=== PATIENT | female | born 1980 | race Caucasian/White ===

== ENCOUNTER → 2019-08-03 17:36 | Outpatient (CLI) | payer OTHER, SELFPAY ==
--- NOTE | 2019-08-03 18:15 | MRI_ITS ---
STUDY: MRI LUMBAR SPINE WITH AND WITHOUT CONTRAST REASON FOR EXAM: Female, 39 years old. Low back and bilateral leg pain. History of surgery at L5 S1 3 years ago. TECHNIQUE: Standardized fat and water weighted pulse sequences were obtained in the sagittal and axial planes. IV Dotarem 13 was administered for the contrast portion of the examination. COMPARISON: None FINDINGS: Alignment is anatomic. No fracture or acute osseous abnormality. The endplates are normal. Mild disc desiccation at L5-S1. Otherwise disc signal is normal. There is likely transitional lumbosacral anatomy with partial sacralization of L5. The conus terminates at the level of the L1 superior endplate with normal contour and signal. The thecal sac terminates at the mid S1 level. At L1-2 and L2-3 there are no significant degenerative changes and no foraminal or spinal canal narrowing. At L3-4, mild bilateral facet degeneration causes no significant narrowing. At L4-5, there is a small diffuse disc bulge with superimposed small left paracentral protrusion and underlying annular tear. This combines with mild bilateral facet degeneration to cause only mild narrowing of the spinal canal and foramina, with no nerve root impingement. Chronic postoperative changes are seen in the posterior paraspinal soft tissues at this level with evidence of remote left hemilaminotomy. At L5-S1, mild bilateral facet degeneration causes no significant narrowing. The paraspinal soft tissues are unremarkable. MRI/Spine Lumbar W/WO Contrast IMPRESSION: Mild degenerative and chronic postoperative changes at L4-5. No nerve root impingement. Suspect transitional lumbosacral anatomy with partial sacralization of L5. Electronically Signed: Gee Springer, at 19:04 EST Tel , Service support ,
== END ==
DX: M51.27 Other intervertebral disc displacement, lumbosacral region (principal)
CPT/HCPCS: 72158; A9575

== ENCOUNTER 2021-10-03 17:04 | Outpatient (CLI) | payer MEDICAID, SELFPAY | END 2021-10-03 23:59 | disposition home or self-care (01) | LOC: LABSPEC 17:04 | PROVIDERS: Visit Provider Physician Assistant | DX: Z20.822 Contact with and (suspected) exposure to COVID-19 (principal); J06.9 Acute upper respiratory infection, unspecified | CPT/HCPCS: 87635; 87804; U0003; U0005 ==

== ENCOUNTER → 2022-10-22 | Outpatient (CLI) | payer MEDICAID, SELFPAY ==
[2022-10-22 14:56] LABS: Amphetamine Urine VISTA NEGATIVE (<1000 ng/mL); Barbiturate Urine VISTA NEGATIVE (< 200 ng/mL); Benzodiazepine Urine VISTA POSITIVE (< 200 ng/mL); Cocaine Urine VISTA NEGATIVE (< 300 ng/mL); Ecstacy Urine VISTA NEGATIVE (< 500 ng/mL); Methadone Urine VISTA NEGATIVE (< 300 ng/mL); PCP Urine VISTA NEGATIVE (< 25 ng/mL); THC Urine VISTA POSITIVE (< 50 ng/mL); Vista UDS pH Range 5
== END | disposition home or self-care (01) ==
LOC: LAB 13:50
PROVIDERS: PCP Family Medicine; Referring Provider Anesthesiology Pain Medicine; Visit Provider Anesthesiology Pain Medicine
DX: F11.20 Opioid dependence, uncomplicated (principal)
CPT/HCPCS: 80307

== ENCOUNTER → 2024-09-01 | Outpatient (CLI) | payer OTHER, SELFPAY ==
--- NOTE | 2024-09-01 14:27 | CT_ITS ---
STUDY: CT ABDOMEN AND PELVIS WITH CONTRAST - URINARY TRACT REASON FOR EXAM: Female, 44 years old. LUQ pain, N/V, weight loss RADIATION DOSAGE (If Supplied By Facility): CTDIvol = ( 14.76 ) mGy, DLP = ( 510.27 ) mGycm TECHNIQUE: Oral and amp; IV Readi-CAT and amp; 100mL Isovue-300 was administered. Transaxial images were obtained from the dome of the diaphragm to the symphysis pubis in the arterial, nephrographic and excretory phases. Multiplanar coronal and sagittal images were reformatted. The protocol utilizes one or more of the following dose reduction techniques: automated exposure control, adjustment of mA and/or kV according to patient size,and/or use of iterative reconstruction technique. COMPARISON: No relevant prior comparison study available FINDINGS: The visualized lung bases are unremarkable. The visualized portions of the heart are within normal limits. Several low-attenuation lesions in the liver, the largest measures approximately 7 mm most likely represent cysts. Normal gallbladder and extrahepatic biliary system. Normal spleen. Normal pancreas. Normal bilateral adrenal glands. Normal visualized stomach. Normal small intestine. Normal colon. The appendix is visualized and appears normal. Normal abdominal aorta. No retroperitoneal adenopathy. Normal right kidney. Normal left kidney. Normal urinary bladder. Normal abdominal wall. Normal osseous structures. CT/Abdomen/Pelvis WITH Contrast IMPRESSION: No acute abnormality in the abdomen or pelvis. There is no evidence of neoplasm. Electronically Signed: Jeff Moreno MD at 0:23 EST ,
[2024-09-01 14:52] LABS: CREATININE FINGERSTICK < 1.0 mg/dL (0.55-1.02); EGFR FINGERSTICK > 60.0000 mL/min (>60)
== END | disposition home or self-care (01) ==
LOC: CT 14:24
PROVIDERS: PCP Nurse Practitioner Family; Referring Provider Nurse Practitioner Acute Care; Visit Provider Nurse Practitioner Acute Care
DX: R19.7 Diarrhea, unspecified (principal); K59.09 Other constipation; R63.4 Abnormal weight loss; R11.2 Nausea with vomiting, unspecified; R10.12 Left upper quadrant pain; R10.13 Epigastric pain
CPT/HCPCS: 74177; Q9967

== ENCOUNTER 2024-10-13 08:35 | Day surgery (SDC) | payer OTHER, SELFPAY ==
[2024-10-13] VITALS (7 sets, daily range): BP systolic 101–125; BP diastolic 69–90; PULSE 74–84; RESP 16; TEMP 36.7–37.1; O2SAT 97–100; BMI 19.9
--- NOTE | 2024-10-13 08:56 | PCM.HP.STD ---
HPI - General General Date of Admission: 10/13/24 Date of Service: 10/13/24 Chief Complaint: Epigastric pain with nausea vomiting and weight loss HPI Narrative SLIME BRIAN, is a 44 F who presents for the endoscopic evaluation of heartburn, nausea, vomiting and abdominal pain ABD US 07/14/2024 WNL Marijuana use - daily since 14 y/o - reports this is not the cause of her symptoms - symptoms do improve with hot showers - LUQ pain x5 months, stabbing pain, constant - reports when she had EGD 1 year ago she was having reflux and did not experience pain - reports she had bad nausea and diarrhea x2 months (June 2024) - she started pantoprazole x1 year BID - weight loss of 20lbs in the past few months - c/o LUQ pain with eating - reports she was experiencing diarrhea (watery) but this is now improving and she does not know what made it better - reports she was experiencing diarrhea within 30 minutes of eating - Vape - denies any alcohol - Caffeine - 4-5 cans a day - denies taking NSAIDS - marijuana daily - helps back pain and increases her appetite - she was experiencing N/V - but states this resolved 6 weeks ago - she was taking phenergan - family h/o GB disease - denies any h/o pancreatitis - Paternal GM with colon CA Pelvic US & ABD US normal She reports an EGD performed 1 year ago - Colonoscopy 2 years ago - showed scar tissue and slow moving - had to do a 2 day bowel prep - reports at that time she was having a BM once every 3 weeks - reports she is Bipolar - she is seeing PCP - reports a h/o suicidal thoughts but denies recently not in years [facility] Medical History Wears glasses Depression Anxiety History of steroid therapy History of hiatal hernia Gastric reflux Vapes nicotine containing substance Hypertension Hx of ovarian cyst Home Medications ?Medication ?Instructions ?Recorded ?Last Taken ?Type cyanocobalamin (vitamin B-12) 1,000 mcg PO QDAY 08/03/24 Unknown History 1,000 mcg capsule fremanezumab-vfrm 225 mg/1.5 mL 225 mg subcut QMONTH 08/03/24 Unknown History subcutaneous syringe (Ajovy Syringe) lisinopril 5 mg tablet 5 mg PO QDAY 08/03/24 Unknown History spironolactone 50 mg tablet 50 mg PO BID 08/03/24 Unknown History sumatriptan succinate 50 mg tablet 50 mg PO ONCE PRN migraine headache 08/03/24 Unknown History zolpidem 10 mg tablet 10 mg PO QHS PRN sleep 08/03/24 Unknown History cholecalciferol (vitamin D3) 10 10 mcg PO QDAY 08/16/24 Unknown History mcg (400 unit) capsule dextroamphetamine-amphetamine 30 30 mg PO QDAY 08/16/24 Unknown History mg tablet (Adderall) duloxetine 30 mg capsule,delayed 90 mg PO QDAY 08/16/24 Unknown History release (Cymbalta) gabapentin 400 mg capsule 400 mg PO BID 08/16/24 Unknown History pantoprazole 40 mg tablet,delayed 40 mg PO BID 08/16/24 Unknown History release alprazolam 0.5 mg tablet 0.5 mg PO DAILY 10/12/24 Unknown History Allergy/AdvReac Type Severity Reaction Status Date / Time No Known Allergies Allergy Verified 10/12/24 14:13 Surgical History History of esophagogastroduodenoscopy (EGD) Hx of colonoscopy Hx of hysterectomy Hx of laminectomy Hx of appendectomy Social History Smoking Status: Current every day smoker tobacco type: e-cigarettes ROS Constitutional Constitutional: Denies fatigue, fever(s), poor appetite, weight gain or weight loss Gastrointestinal Gastrointestinal: Denies belching, bloating, change in bowel habits, change in stool character, chewing difficulty, coffee ground emesis, constipation, cramping, diarrhea, dyspepsia, dysphagia, early satiety, excessive flatus, fecal incontinence, heartburn, hematemesis, hematochezia, hemorrhoids, loose stools, melena, nausea, odynophagia, rectal bleeding, tenesmus, vomiting or weight changes Physical Exam Const alert, oriented x3, no apparent distress and healthy appearing General Appearance: cooperative GI normal to inspection, nondistended, normoactive bowel sounds, soft to palpation, non-tender and non-distended Percussion: normal to percussion Rectal Exam: deferred Assessment & Plan Assessment/Plan (1) Change in bowel habits: (2) Epigastric pain: (3) LUQ pain: (4) Nausea & vomiting: QUALIFIERS: Vomiting type: unspecified Qualified Code(s): R11.2 - Nausea with vomiting, unspecified PLAN: Plan 44y/o female presents for the evaluation of abdominal pain. She c/o LUQ stabbing abdominal pain x5 months, 20lb weight loss, nausea and diarrhea. She has been on pantoprazole 40mg BID x1 year. She reports an EGD performed in 2022 revealed a HH. She smokes marijuana daily and reports resolution of pain with hot showers. We have reviewed CHS and marijuana cessation. She will undergo an EGD and colonoscopy. She will complete stool testing and labs. Pending symptoms may repeat EGD. She will follow-up in the office post procedure. Suspect CHS Consider GB work-up in future Patient Instructions: Two day Bowel prep
--- NOTE | 2024-10-13 09:17 | PRE.ANES_ITS ---
ASA Classification* ASA Classification ASA Classification: 2 Assessment & Plan Anesthesia* Anesthesia Assessment Anesthesia Assessment: Discussed sedation and/or anesthesia options, risks, benefits, and alternatives with patient/parents/legal guardian/POA. Questions invited. The patient/parents/legal guardian/POA seems to understand and agrees to proceed with anesthesia plan. Reviewed the physical assessment, medical history, allergy history and patient home medications list prior to surgery/procedure/anesthetic and documented any changes. Performed airway and anesthesia risk assessments. 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 When Was Last Pacemaker Check QUESTION #4 FULL TEXT: You/Your Family Experience fever (hyperthermia) with Anesthesia Last Oral Intake Last Oral intake: Last Oral Intake NPO since 05:30 10/13/24 09:05 Meds taken in AM with sips of water? Meds patient instructed to take am of surgery PONV PONV - wire straightening machine operator: PONV - wire straightening machine operator Female Yes 10/12/24 14:23 HX of Motion Sickness No 10/12/24 14:23 HX of N/V After Surgery No 10/12/24 14:23 Non-Smoker No 10/12/24 14:23 Duration of Surgery greater No 10/12/24 14:23 than 60 minutes Number of Risk Factors 1 10/12/24 14:23 PONV Score Low Risk 10/12/24 14:23 Height & Weight Height & Weight: Anesthesia: Height & Weight Height 5 ft 6 in 10/13/24 09:05 Weight: 56 kg 10/13/24 09:05 Body Mass Index (BMI) 19.9 10/13/24 09:05 Respiratory Assessment Respiratory Assessment - wire straightening machine operator: Respiratory Tract Infection Hx - wire straightening machine operator Hx Respiratory Tract Infection No 10/12/24 14:23 STOP Sleep Apnea STOP Sleep Apnea - wire straightening machine operator: STOP Sleep Apnea - wire straightening machine operator Hx Hypertension No 10/12/24 14:23 Hx Sleep Apnea No 10/12/24 14:23 CPAP BIPAP Do you snore loudly (louder No 10/12/24 14:23 than talking or can be heard Do you often feel tired/ No 10/12/24 14:23 fatigued/ sleepy during daytime? Has anyone observed you stop No 10/12/24 14:23 breathing during sleep? STOP Results Negative 10/12/24 14:23 QUESTION #5 FULL TEXT : Do you snore loudly (louder than talking or can be heard through closed doors)? 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 Specify any problems Hx of Preganancy in last 3 No 10/12/24 14:23 Months Nurse Filling Out Transfusion VCHRISTIN 10/12/24 14:23 & Questions: Date: 10/12/24 10/12/24 14:23 Time: 14:24 10/12/24 14:23 Patient unable to answer at this time (ie. confused, unrespo /Reproduction History /Reproductive History - wire straightening machine operator: /Reproductive Hx- wire straightening machine operator Hx Now No 10/12/24 14:23 Gestational Age (in weeks): EDC: Hx Hx Para Hx Section SAB No 10/12/24 14:23 PFSH Medical History Wears glasses Depression Anxiety History of steroid therapy History of hiatal hernia Gastric reflux Vapes nicotine containing substance Hypertension Hx of ovarian cyst Home Medications ?Medication ?Instructions ?Recorded ?Last Taken ?Type cyanocobalamin (vitamin B-12) 1,000 mcg PO QDAY 08/03/24 Unknown History 1,000 mcg capsule fremanezumab-vfrm 225 mg/1.5 mL 225 mg subcut QMONTH 08/03/24 Unknown History subcutaneous syringe (Ajovy Syringe) lisinopril 5 mg tablet 5 mg PO QDAY 08/03/24 Unknown History spironolactone 50 mg tablet 50 mg PO BID 08/03/24 Unknown History sumatriptan succinate 50 mg tablet 50 mg PO ONCE PRN migraine headache 08/03/24 Unknown History zolpidem 10 mg tablet 10 mg PO QHS PRN sleep 08/03/24 Unknown History cholecalciferol (vitamin D3) 10 10 mcg PO QDAY 08/16/24 Unknown History mcg (400 unit) capsule dextroamphetamine-amphetamine 30 30 mg PO QDAY 08/16/24 Unknown History mg tablet (Adderall) duloxetine 30 mg capsule,delayed 90 mg PO QDAY 08/16/24 Unknown History release (Cymbalta) gabapentin 400 mg capsule 400 mg PO BID 08/16/24 Unknown History pantoprazole 40 mg tablet,delayed 40 mg PO BID 08/16/24 Unknown History release alprazolam 0.5 mg tablet 0.5 mg PO DAILY 10/12/24 Unknown History Allergy/AdvReac Type Severity Reaction Status Date / Time No Known Allergies Allergy Verified 10/13/24 09:04 Surgical History History of esophagogastroduodenoscopy (EGD) Hx of colonoscopy Hx of hysterectomy Hx of laminectomy Hx of appendectomy Social History Smoking Status: Current every day smoker tobacco type: e-cigarettes Review of Systems (Anesthesia) ROS Narrative System reviewed and no additional complaints, except as documented.
--- NOTE | 2024-10-13 10:00 | EGD_PTH ---
PATIENT: SLIME BRIAN LOC: EN U#:[id number] AGE/SX: 44/F ROOM: RE10/13/[address]: Dr. David Bunn DO : 1980 BED: DIS: 10/13/2024 SPEC #: [id number] RECD: 10/13/24 11:47 STATUS: AMY SHABANA #: [id number] PERCY: 10/13/24 10:[address]: David Bunn DEPT: SURGICAL PATHOLOGY RECD BY: Maia Plata ENTERED: 10/13/24 12:30 SP TYPE: EGD BIOPSY OT DR: Stella Holguin, HELMET COVERER-C Tissues: A - Duodenum, NOS B - Gastric mucous membrane C - Esophagus, NOS D - Sigmoid colon biopsy Procedures: Special Stain Group I Surgery Specimen Level IV Alcian Blue/PAS (control) HEADER OPERATION: Colonoscopy, EGD biopsy PRE-OP DIAGNOSIS: Change in bowel habits, epigastric pain, left upper quadrant pain, nausea/vomiting TISSUE SUBMITTED: A- Duodenum biopsy, B- Gastric body biopsy, C- Distal esophagus biopsy, D- Sigmoid polyp biopsy MICROSCOPIC DIAGNOSIS A. Duodenum, biopsy: Fragments of duodenal mucosa, no pathologic diagnosis. B. Gastric body, biopsy: Minimal gastritis. See microscopic description and comment. C. Distal esophagus, biopsy: Fragments of gastroesophageal mucosa with focal intestinal metaplasia (goblet cell metaplasia), consistent with Wilks's esophagus. Chronic inflammation. Negative for dysplasia. See comment. D. Sigmoid polyp, biopsy: Tubular adenoma. . 10/14/2024 COMMENT B. The results of immunohistochemistry for Helicobacter pylori will be reported separately ([id number]). C. Alcian blue/PAS stain with matched control is used in the evaluation of the specimen. Immunohistochemistry ([id number]) for P53 and Ki-67 will be performed and results will be reported separately. The specimen predominantly consists of squamous mucosa. MICROSCOPIC DESCRIPTION Slides are reviewed. B. The specimen shows fragments of gastric mucosa with chronic inflammatory cell infiltrates in the lamina propria consisting of lymphocytes and plasma cells, consistent with minimal chronic gastritis. GROSS DESCRIPTION A. Received in fixative is one container labeled with the patient's name and designated Duodenum biopsy. The specimen consists of two irregular fragments of light herrmann soft tissue that in aggregate measure 1.0 x 0.4 x 0.2 cm. The specimen is totally submitted in one cassette. B. Received in fixative is one container labeled with the patient's name and designated Gastric body biopsy. The specimen consists of two irregular fragments of light herrmann soft tissue that in aggregate measure 0.9 x 0.3 x 0.2 cm. The specimen is totally submitted in one cassette. C. Received in fixative is one container labeled with the patient's name and designated Distal esophagus biopsy. The specimen consists of multiple irregular fragments of light herrmann soft tissue that in aggregate measure 0.9 x 0.4 x 0.2 cm. The specimen is totally submitted in one cassette. D. Received in fixative is one container labeled with the patient's name and designated Sigmoid polyp biopsy. The specimen consists of one irregular fragment of light herrmann soft tissue that measure 0.8 x 0.4 x 0.2 cm. The specimen is totally submitted in one cassette. 10/13/2024 TC:1 [facility]:[id number] ADDENDUM ADDENDUM ADDENDUM ADDENDUM ADDENDUM ADDENDUM ADDENDUM ADDENDUM ADDENDUM ADDENDUM ADDENDUM ADDENDUM ADDENDUM ADDENDUM ADDENDUM 11/09/2024 08:44 ADDENDUM 11/09/2024 08:44 ADDENDUM 11/09/2024 08:44 ADDENDUM 11/09/2024 08:44 ADDENDUM 11/09/2024 08:44 This addendum is added to incorporate an outside pathology consultation report. The case was examined at [facility] (#[id number]) and the following diagnosis was rendered. TISSUECYPHER RISK CLASS AND RISK SCORE RISK CLASS- LOW RISK SCORE - 0.8 5 YEAR PROBABILITY OF PROGRESSION - 0.40% Please see complete above mentioned consultation report in EMR
--- NOTE | 2024-10-13 10:00 | IMM_PTH ---
PATIENT: SLIME BRIAN LOC: EN U#:[id number] AGE/SX: 44/F ROOM: RE10/13/[address]: Dr. David Bunn DO : 1980 BED: DIS: 10/13/2024 SPEC #: [id number] RECD: 10/13/24 13:40 STATUS: AMY REQ #: [id number] PERCY: 10/13/24 10:[address]: David Bunn DEPT: IMMUNOHISTOCHEMISTRY RECD BY: Bautista Abraham ENTERED: 10/13/24 13:40 SP TYPE: IMMUNO OTHR DR: Stella Holguin, LAN ADMINISTRATOR-C Tissues: B - Gastric mucous membrane C - Esophagus, NOS Procedures: H Pylori (initial) P53 (initial) KI-67 (add) PHYSICIAN & INSTITUTION [facility] [id number] SPECIMEN INFORMATION: Tissue Source: B- Gastric body biopsy, C- Distal esophagus biopsy Clinical Info: Change in bowel habits, epigastric pain, left upper quadrant pain, nausea/vomiting Specimen Number: [id number] B, C CPT code: [id number] METHODOLOGY: Deparaffinized sections of prefer/formalin-fixed tissue or PAP/DQ stained slides are incubated with monoclonal/polyclonal antibodies/oligonucleotide probes. Localization is made via biotin free immunoperoxidase method. Appropriate controls are performed and reacted as expected. Results on target cell population are indicated in the following table: RESULTS: ANTIBODY / CLONE RESULT Block B H Pylori (polyclonal) negative Block C P53 (DO-7) negative (null pattern) Ki-67 (30-9) positive, low These tests were developed and their performance characteristics determined by [facility]. They may not have been cleared or approved by the U.S. Food and Drug Administration. The FDA has determined that such clearance or approval is not necessary. The above immunohistochemical/dualISH markers are ordered and reviewed by the Pathologist. INTERPRETATION: B. Gastric body, biopsy: Negative for Helicobacter pylori organisms. C. Distal esophagus, biopsy: Negative for dysplasia. 10/15/2024
--- NOTE | 2024-10-13 10:37 | OP.CCLET_ITS ---
10/13/2024 Jose Muñoz Re : Upper GI endoscopy procedure for Timmy Aburto Dear Np. Holguin This procedure was performed on Sunday, October 13, 2024. My impressions and recommendations are as follows: Impressions : - Z-line irregular, 38 cm from the incisors. Biopsied. - Medium-sized hiatal hernia. - Erythematous mucosa in the gastric body. Biopsied. - Chronic duodenitis. Biopsied. Recommendations : - Discharge patient to home. - Resume previous diet. - Continue present medications. - Await pathology results. My findings are described in the full procedure note, which is enclosed. If I can be of further assistance, please feel free to contact me at . Sincerely, David Bunn, 10/13/2024 10:36:50 AM This report has been signed electronically.
--- NOTE | 2024-10-13 10:37 | OP.EGD_ITS ---
Patient Name: Timmy Aburto Procedure Date: 10/13/2024 9:51 AM Date of : 1980 Age: 44 Procedure: Upper GI endoscopy Indications: Epigastric abdominal pain, Functional Dyspepsia Providers: David Bunn DO Referring MD: David Bunn DO Medicines: Monitored Anesthesia Care Patient Profile: This is a 44 year old female. Refer to note in patient chart for documentation of history and physical. Patient has symptoms of chronic abdominal cramping, chronic epigastric abdominal pain, chronic dyspepsia, chronic nausea, chronic regurgitation and chronic vomiting. Complications: No immediate complications. Procedure: Pre-Anesthesia Assessment: - Prior to the procedure, a History and Physical was performed, and patient medications and allergies were reviewed. The patient is competent. The risks and benefits of the procedure and the sedation options and risks were discussed with the patient. All questions were answered and informed consent was obtained. Patient identification and proposed procedure were verified by the physician in the pre-procedure area. Mental Status Examination: alert and oriented. Airway Examination: normal oropharyngeal airway and neck mobility. Respiratory Examination: clear to auscultation. CV Examination: normal. Prophylactic Antibiotics: The patient does not require prophylactic antibiotics. Prior Anticoagulants: The patient has taken no anticoagulant or antiplatelet agents except for NSAID medication. ASA Grade Assessment: II - A patient with mild systemic disease. After reviewing the risks and benefits, the patient was deemed in satisfactory condition to undergo the procedure. The anesthesia plan was to use monitored anesthesia care (MAC). Immediately prior to administration of medications, the patient was re-assessed for adequacy to receive sedatives. The heart rate, respiratory rate, oxygen saturations, blood pressure, adequacy of pulmonary ventilation, and response to care were monitored throughout the procedure. The physical status of the patient was re-assessed after the procedure. After obtaining informed consent, the endoscope was passed under direct vision. Throughout the procedure, the patient's blood pressure, pulse, and oxygen saturations were monitored continuously. The Colonoscope was introduced through the mouth, and advanced to the second part of duodenum. The upper GI endoscopy was accomplished without difficulty. The patient tolerated the procedure well. Scope In: 10:05:25 AM Scope Out: 10:05:29 AM Total Procedure Duration Time 0 hours 0 minutes 4 seconds Findings: The Z-line was irregular and was found 38 cm from the incisors. Biopsies were taken with a cold forceps for histology. Verification of patient identification for the specimen was done. Estimated blood loss was minimal. A medium-sized hiatal hernia was present. Patchy mildly erythematous mucosa without bleeding was found in the gastric body. Biopsies were taken with a cold forceps for histology. Verification of patient identification for the specimen was done. Estimated blood loss was minimal. Biopsies were taken with a cold forceps for Helicobacter pylori testing. Verification of patient identification for the specimen was done. Patchy inflammation characterized by friability and granularity was found in the duodenal bulb. Biopsies were taken with a cold forceps for histology. Verification of patient identification for the specimen was done. Estimated blood loss was minimal. Impression: - Z-line irregular, 38 cm from the incisors. Biopsied. - Medium-sized hiatal hernia. - Erythematous mucosa in the gastric body. Biopsied. - Chronic duodenitis. Biopsied. Recommendation: - Discharge patient to home. - Resume previous diet. - Continue present medications. - Await pathology results. Procedure Code(s): --- Professional --- 16770, Esophagogastroduodenoscopy, flexible, transoral; with biopsy, single or multiple CPT copyright 2021 [employer]. All rights reserved. The codes documented in this report are preliminary and upon cpc coder review may be revised to meet current compliance requirements. Davdi Bunn DO 10/13/2024 10:36:50 AM This report has been signed electronically. Number of Addenda: 0 Note Initiated On: 10/13/2024 9:51 AM
--- NOTE | 2024-10-13 10:40 | OP.CCLET_ITS ---
10/13/2024 Jose Muñoz Re : Colonoscopy procedure for Timmy Aburto Dear Np. Holguin This procedure was performed on Sunday, October 13, 2024. My impressions and recommendations are as follows: Impressions : - Tortuous colon. - One 5 mm polyp at the recto-sigmoid colon, removed with a jumbo cold forceps. Resected and retrieved. - Congested mucosa in the terminal ileum. Biopsied. Recommendations : - Discharge patient to home. - Resume previous diet. - Continue present medications. - Await pathology results. - Repeat colonoscopy in 5 years for surveillance. My findings are described in the full procedure note, which is enclosed. If I can be of further assistance, please feel free to contact me at . Sincerely, David Friend, 10/13/2024 10:39:47 AM This report has been signed electronically.
--- NOTE | 2024-10-13 10:40 | OP.COLON_ITS ---
Patient Name: Timmy Aburto Procedure Date: 10/13/2024 10:05 AM Date of : 1980 Age: 44 Procedure: Colonoscopy Indications: Screening for colorectal malignant neoplasm Providers: David Bunn DO Referring MD: David Bunn DO Medicines: Monitored Anesthesia Care Patient Profile: This is a 44 year old female. Refer to note in patient chart for documentation of history and physical. Patient has symptoms of chronic abdominal cramping, chronic epigastric abdominal pain, chronic dyspepsia, chronic nausea, chronic regurgitation and chronic vomiting. Last Colonoscopy: none. The patient's first colonoscopy is today. Complications: No immediate complications. Procedure: Pre-Anesthesia Assessment: - Prior to the procedure, a History and Physical was performed, and patient medications and allergies were reviewed. The patient is competent. The risks and benefits of the procedure and the sedation options and risks were discussed with the patient. All questions were answered and informed consent was obtained. Patient identification and proposed procedure were verified by the physician in the pre-procedure area. Mental Status Examination: alert and oriented. Airway Examination: normal oropharyngeal airway and neck mobility. Respiratory Examination: clear to auscultation. CV Examination: normal. Prophylactic Antibiotics: The patient does not require prophylactic antibiotics. Prior Anticoagulants: The patient has taken no anticoagulant or antiplatelet agents except for NSAID medication. ASA Grade Assessment: II - A patient with mild systemic disease. After reviewing the risks and benefits, the patient was deemed in satisfactory condition to undergo the procedure. The anesthesia plan was to use monitored anesthesia care (MAC). Immediately prior to administration of medications, the patient was re-assessed for adequacy to receive sedatives. The heart rate, respiratory rate, oxygen saturations, blood pressure, adequacy of pulmonary ventilation, and response to care were monitored throughout the procedure. The physical status of the patient was re-assessed after the procedure. After I obtained informed consent, the scope was passed under direct vision. Throughout the procedure, the patient's blood pressure, pulse, and oxygen saturations were monitored continuously. The Colonoscope was introduced through the anus and advanced to the terminal ileum. The colonoscopy was performed without difficulty. The patient tolerated the procedure well. The quality of the bowel preparation was adequate. Scope In: 10:07:09 AM Scope Withdrawal Time 0 hours 17 minutes 44 seconds Scope Out: 10:30:20 AM Total Procedure Duration Time 0 hours 23 minutes 11 seconds Findings: The perianal and digital rectal examinations were normal. The recto-sigmoid colon, sigmoid colon, ascending colon and cecum were mildly tortuous. A 5 mm polyp was found in the recto-sigmoid colon. The polyp was sessile. The polyp was removed with a jumbo cold forceps. Resection and retrieval were complete. Verification of patient identification for the specimen was done. Estimated blood loss was minimal. A patchy area of the terminal ileum was congested. Biopsies were taken with a cold forceps for histology. Impression: - Tortuous colon. - One 5 mm polyp at the recto-sigmoid colon, removed with a jumbo cold forceps. Resected and retrieved. - Congested mucosa in the terminal ileum. Biopsied. Recommendation: - Discharge patient to home. - Resume previous diet. - Continue present medications. - Await pathology results. - Repeat colonoscopy in 5 years for surveillance. Procedure Code(s): --- Professional --- 15700, Colonoscopy, flexible; with biopsy, single or multiple CPT copyright 2021 [employer]. All rights reserved. The codes documented in this report are preliminary and upon health information coder review may be revised to meet current compliance requirements. David Bunn DO 10/13/2024 10:39:47 AM This report has been signed electronically. Number of Addenda: 0 Note Initiated On: 10/13/2024 10:05 AM
--- NOTE | 2024-10-13 10:40 | PCM.POST.ANE ---
Anesthesia: Postop Eval I Current Vital Signs Temperature: 98.2 F Pulse Rate: 74 Blood Pressure: 104/69 Respiratory Rate: 16 Pulse Ox: 100 Oxygen Delivery Method: Room Air Assessment Airway patent: Yes Spontaneous unlabored respirations: Yes Mental status: Awake nausea: No Vomiting: No Anesthesia Complication: No Fluid Hydration Crystalloid volume administer (ml): 60 Total IV fluid infused: 60 Progress Note Anesthesia document: Postop Eval 1 completed: Yes
--- NOTE | 2024-10-13 13:20 | PCM.POSTANE2 ---
Anesthesia Postop Eval I Sum Postop Eval Completion status Anesthesia document: Postop Eval 1 completed: Yes Anesthesia Postop Eval I Summary Anesthesia Postop Eval I Summary: Anesthesia Postop Eval I: Assessment Summary Airway patent Yes 10/13/24 10:42 [email or web address] Spontaneous unlabored Yes 10/13/24 10:42 [email or web address] respirations Mental status Awake 10/13/24 10:42 [email or web address] nausea No 10/13/24 10:42 [email or web address] Vomiting No 10/13/24 10:42 [email or web address] Anesthesia Postop Eval I: Fluid Summary Crystalloid volume administer 60 10/13/24 10:42 [email or web address] (ml) Colloids volume administered ( ml) Blood Product volume administered (ml) Total IV fluid infused 60 10/13/24 10:42 [email or web address] Anesthesia Postop Eval I: Summary Notes Anesthesia Complication No 10/13/24 10:42 [email or web address] Anesthesia Complication Comment: Post-operative progress note Anesthesia: Postop Eval II Evaluation Mental status: Awake Pain Level: 0 nausea: No Vomiting: No
== END 2024-10-13 11:17 | disposition home or self-care (01) ==
LOC: EN 08:36 → AC 08:37
PROVIDERS: PCP Nurse Practitioner Family; Referring Provider Internal Medicine Gastroenterology; Visit Provider Internal Medicine Gastroenterology
PROC: 0DJD8ZZ Inspection of Lower Intestinal Tract, Via Natural or Artificial Opening Endoscopic (ICD-10-PCS; CPT 45378; principal; 2024-10-13 09:55)
DX: Z12.11 Encounter for screening for malignant neoplasm of colon (principal); K44.9 Diaphragmatic hernia without obstruction or gangrene; K29.80 Duodenitis without bleeding; I10 Essential (primary) hypertension; K21.00 Gastro-esophageal reflux disease with esophagitis, without bleeding; F17.290 Nicotine dependence, other tobacco product, uncomplicated; K29.70 Gastritis, unspecified, without bleeding; K22.70 Barrett's esophagus without dysplasia; D12.5 Benign neoplasm of sigmoid colon
CPT/HCPCS: 45380; 43239

== ENCOUNTER → 2024-11-10 | Outpatient (CLI) | payer OTHER, SELFPAY ==
--- NOTE | 2024-11-10 07:59 | NM_ITS ---
PROCEDURE: GASTRIC EMPTYING STUDY - 4 HR REASON FOR EXAM: Epigastric pain. TECHNIQUE: Nuclear medicine solid phase gastric emptying study. RADIOPHARMACEUTICAL: 1.1 millicurie technetium 99 M sulfur colloid, within an egg sandwich. COMPARISON: None. FINDINGS: Gastroesophageal reflux is identified. At 118 minutes, 51% gastric emptying is seen. At 236 minutes, 58% gastric emptying was noted. NM/Gastric Emptying Study - 4 HR IMPRESSION: 1. Gastroesophageal reflux, recurrent. 2. Given the recurrent gastroesophageal reflux, complicating antegrade gastric emptying, no evidence of significant delay in gastric emptying is felt to be present. Reading Location: [id number]
== END | disposition home or self-care (01) ==
LOC: NM 07:55
PROVIDERS: PCP Nurse Practitioner Family; Referring Provider Nurse Practitioner Acute Care; Visit Provider Nurse Practitioner Acute Care
DX: R10.13 Epigastric pain (principal); R10.12 Left upper quadrant pain; R11.2 Nausea with vomiting, unspecified
CPT/HCPCS: 78264; A9541

== ENCOUNTER 2024-12-21 05:47 | Day surgery (SDC) | payer OTHER, SELFPAY ==
[2024-12-21] VITALS (7 sets, daily range): BP systolic 107–127; BP diastolic 79–98; PULSE 76–104; RESP 16; TEMP 36.3; O2SAT 9–99; BMI 19.8
--- NOTE | 2024-12-21 07:00 | EGD_PTH ---
PATIENT: SLIME BRIAN LOC: EN U#:[id number] AGE/SX: 44/F ROOM: RE12/21/[address]: Dr. David Bunn DO : 1980 BED: DIS: 12/21/2024 SPEC #: [id number] RECD: 12/21/24 13:57 STATUS: AMY RECara #: [id number] PERCY: 12/21/24 07:[address]: David Bunn DEPT: SURGICAL PATHOLOGY RECD BY: Bautista Abraham ENTERED: 12/21/24 13:57 SP TYPE: EGD BIOPSY HERMES DR: Jessika Primary Care Phys ROSHAN Lara Tissues: A - Esophagus, NOS Procedures: Surgery Specimen Level IV HEADER OPERATION: EGD with biopsy PRE-OP DIAGNOSIS: Left upper quadrant biopsy, epigastric pain, Chris's esophagus TISSUE SUBMITTED: A- Distal esophagus biopsy MICROSCOPIC DIAGNOSIS A. DISTAL ESOPHAGUS, BIOPSY: - CHRIS MUCOSA NEGATIVE FOR DYSPLASIA. * SQUAMOUS MUCOSA WITH MILD REACTIVE CHANGE. MICROSCOPIC DESCRIPTION Slides are reviewed. GROSS DESCRIPTION A. Received in fixative is one container labeled with the patient's name and designated Distal esophagus biopsy. The specimen consists of multiple irregular fragments of light herrmann soft tissue that in aggregate measure 2 x 0.3 x 0.2 cm. The specimen is totally submitted in one cassette. BEVERLEYJuan 12/21/2024 CPT:88945
--- NOTE | 2024-12-21 07:00 | PCM.HP.STD ---
HPI - General General Date of Admission: 12/21/24 Date of Service: 12/21/24 Chief Complaint: quesada's esophagus HPI Narrative SLIME BRIAN, is a 44 F who presents for surveillance of quesada's esophagus Colon 10/13/2024 - tubular adenoma (recall in 5 years) - Paternal GM with colon CA - Tortuous colon. - One 5 mm polyp at the recto-sigmoid colon, removed with a jumbo cold forceps. Resected and retrieved. - Congested mucosa in the terminal ileum. Biopsied. EGD 10/13/2024 - Quesada's, neg. H. pylori - Z-line irregular, 38 cm from the incisors. Biopsied. - Medium-sized hiatal hernia. - Erythematous mucosa in the gastric body. Biopsied. - Chronic duodenitis. Biopsied. She has long segment Quesada's esophagus. She needs to be on PPI twice a day. She also has a lot of inflammation in her stomach secondary to bile gastritis. Please make sure we check a gastrin level she will need repeat upper endoscopy in a few months. - she reports improvement with N/V - LUQ pain is a pressure worse with eating - caffeine 4x a day - still smoking marijuana daily - vape - tobacco daily - she reports she was told post procedure that her stomach and rectum are not kristen normally - she reports she was supposed to get a GES - she reports UGI distress worse when her stomach is empty - reports she eats something small to make herself feel better - bowels can be formed or watery diarrhea with urgency - reports she was told post procedure her rectum does not function normally flexing when it is supposed to be kristen and reports this is why she is having urgency and fecal incontinence with watery stools - denies taking any fiber supplements - she is not a big meat eater - reports she does eat fruits and vegetables - she does experience urinary stress incontinence - reports her water intake is great - weight is stable [facility] Medical History History of Quesada esophagus Wears glasses Depression Anxiety History of steroid therapy History of hiatal hernia Gastric reflux Vapes nicotine containing substance Hypertension Hx of ovarian cyst Home Medications ?Medication ?Instructions ?Recorded ?Last Taken ?Type cyanocobalamin (vitamin B-12) 1,000 mcg PO QDAY 08/03/24 12/20/24 History 1,000 mcg capsule fremanezumab-vfrm 225 mg/1.5 mL 225 mg subcut QMONTH 08/03/24 10/18/24 History subcutaneous syringe (Ajovy Syringe) lisinopril 5 mg tablet 5 mg PO QDAY 08/03/24 12/20/24 History spironolactone 50 mg tablet 50 mg PO BID 08/03/24 12/20/24 History sumatriptan succinate 50 mg tablet 50 mg PO ONCE PRN migraine headache 08/03/24 Unknown History zolpidem 10 mg tablet 10 mg PO QHS PRN sleep 08/03/24 Unknown History cholecalciferol (vitamin D3) 10 10 mcg PO QDAY 08/16/24 12/20/24 History mcg (400 unit) capsule dextroamphetamine-amphetamine 30 30 mg PO QDAY 08/16/24 Unknown History mg tablet (Adderall) duloxetine 30 mg capsule,delayed 90 mg PO QHS 08/16/24 12/20/24 History release (Cymbalta) alprazolam 0.5 mg tablet 0.5 mg PO DAILY 10/12/24 12/21/24 05:00 History pantoprazole 40 mg tablet,delayed 40 mg PO BID 12/16/24 12/21/24 05:00 History release Allergy/AdvReac Type Severity Reaction Status Date / Time No Known Allergies Allergy Verified 12/21/24 06:16 Surgical History History of esophagogastroduodenoscopy (EGD) Hx of colonoscopy Hx of hysterectomy Hx of laminectomy Hx of appendectomy Social History Smoking Status: Current every day smoker tobacco type: e-cigarettes ROS Constitutional Constitutional: Denies fatigue, fever(s), poor appetite, weight gain or weight loss Gastrointestinal Gastrointestinal: Denies belching, bloating, change in bowel habits, change in stool character, chewing difficulty, coffee ground emesis, constipation, cramping, diarrhea, dyspepsia, dysphagia, early satiety, excessive flatus, fecal incontinence, heartburn, hematemesis, hematochezia, hemorrhoids, loose stools, melena, nausea, odynophagia, rectal bleeding, tenesmus, vomiting or weight changes Vital Signs Vital Signs Vital Signs: 12/21/24 06:20 12/21/24 06:21 Temperature 97.4 F L Temperature Source Temporal Pulse Rate 76 Respiratory Rate 16 Respiratory Pattern Normal Blood Pressure 127/98 H Blood Pressure Mean 107 Blood Pressure Source Monitor Blood Pressure Position Semi-Fowlers Blood Pressure Location Left Arm Pulse Ox 99 Oxygen Delivery Method Room Air Weight Weight: 123 lb Body Mass Index (BMI) 19.8 Physical Exam Const alert, oriented x3, no apparent distress and healthy appearing General Appearance: cooperative GI normal to inspection, nondistended, normoactive bowel sounds, soft to palpation, non-tender and non-distended Percussion: normal to percussion Rectal Exam: deferred Assessment & Plan Assessment/Plan (1) Quesada esophagus: QUALIFIERS: Quesada's esophagus type: without dysplasia Qualified Code(s): K22.70 - Quesada's esophagus without dysplasia (2) Bile reflux gastritis: PLAN: Assessment and Plan Assessment and Plan (1) LUQ pain: Status: Acute (2) Epigastric pain: Status: Acute (3) Quesada esophagus: Status: Acute Qualifiers: Quesada's esophagus type: without dysplasia Qualified Code(s): K22.70 - Quesada's esophagus without dysplasia Comment: Long segment w/o dysplasia 10/13/2024 Plan: Order sent to [facility] Strongly encouraged smoking cessation (tobacco and marijuana) Repeat EGD in 3 months (4) Change in bowel habits: Status: Acute (5) Fecal urgency: Status: Acute (6) Bile reflux gastritis: Status: Acute Orders: Orders Gastrin, Serum Today K22.70 - Quesada's esophagus without dysplasia, R10.12 - Left upper quadrant pain, R10.13 - Epigastric pain Gastric Emptying Study - 4 HR Today R10.12 - Left upper quadrant pain, R10.13 - Epigastric pain, R11.2 - Nausea with vomiting, unspecified Referrals
--- NOTE | 2024-12-21 07:14 | PCM.PRE.AN2 ---
ASA Classification* ASA Classification ASA Classification: 2 Assessment & Plan Anesthesia* Anesthesia Assessment Anesthesia Assessment: Discussed sedation and/or anesthesia options, risks, benefits, and alternatives with patient/parents/legal guardian/POA. Questions invited. The patient/parents/legal guardian/POA seems to understand and agrees to proceed with anesthesia plan. Reviewed the physical assessment, medical history, allergy history and patient home medications list prior to surgery/procedure/anesthetic and documented any changes. Performed airway and anesthesia risk assessments. Anesthesia Type Anesthesia Type: MAC History Source History Obtained from:: Patient and Chart Anesthesia Focused Assessment* Temperature: 97.4 F Pulse Rate: 76 Blood Pressure: 127/98 Respiratory Rate: 16 Pulse Ox: 99 Oxygen Delivery Method: Room Air Airway Assessment Mouth opens: >3 cm Mallampati Score: III Teeth Condition: Caps/Crowns (Patient has several crowns. #19 left lower crown is broken. 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 When Was Last Pacemaker Check QUESTION #4 FULL TEXT: You/Your Family Experience fever (hyperthermia) with Anesthesia Last Oral Intake Last Oral intake: Last Oral Intake NPO since 00:00 12/21/24 06:21 Meds taken in AM with sips of Yes 12/21/24 06:21 water? Meds patient instructed to take am of surgery PONV PONV - cosmetology professor: PONV - cosmetology professor Female Yes 12/16/24 10:44 HX of Motion Sickness No 12/16/24 10:44 HX of N/V After Surgery No 12/16/24 10:44 Non-Smoker No 12/16/24 10:44 Duration of Surgery greater No 12/16/24 10:44 than 60 minutes Number of Risk Factors 1 12/16/24 10:44 PONV Score Low Risk 12/16/24 10:44 Height & Weight Height & Weight: Anesthesia: Height & Weight Height 5 ft 6 in 12/21/24 06:21 Weight: 55.792 kg 12/21/24 06:21 Body Mass Index (BMI) 19.8 12/21/24 06:21 Respiratory Assessment Respiratory Assessment - cosmetology professor: Respiratory Tract Infection Hx - cosmetology professor Hx Respiratory Tract Infection No 12/16/24 10:44 STOP Sleep Apnea STOP Sleep Apnea - cosmetology professor: STOP Sleep Apnea - cosmetology professor Hx Hypertension Yes: CONTROLLED WITH MED 12/16/24 10:44 Hx Sleep Apnea No 12/16/24 10:44 CPAP BIPAP Do you snore loudly (louder No 12/16/24 10:44 than talking or can be heard Do you often feel tired/ Yes 12/16/24 10:44 fatigued/ sleepy during daytime? Has anyone observed you stop No 12/16/24 10:44 breathing during sleep? STOP Results Positive 12/16/24 10:44 QUESTION #5 FULL TEXT : Do you snore loudly (louder than talking or can be heard through closed doors)? Tobacco Use History Tobacco Use History - cosmetology professor: Tobacco Use History - cosmetology professor Tobacco Use Smoking Status Current every day smoker 12/16/24 10:44 Hx Tobacco Use Yes 12/16/24 10:44 Years Smoking Packs Smoked per Day Smoking Cessation Date was within the last 15 years Hx Smoking Cessation Date Hx Smoking Cessation Counseling Any additional information?: Yes Tobacco Use: Vapor (Patient did vape today.) Hematologic Medial History Hematologic Hx - cosmetology professor: Hematologic Medical Hx - release of information specialist Hx of Blood Transfusion No 12/16/24 10:44 Hx of Transfusion in last 3 No 12/16/24 10:44 Months Date of Last Transfusion (if within last 3 months) Ever experience any problems No 12/16/24 10:44 with transfusion(s)? Specify any problems Hx of Preganancy in last 3 No 12/16/24 10:44 Months Nurse Filling Out Transfusion DSCHRIBER 12/16/24 10:44 & Questions: Date: 12/16/24 12/16/24 10:44 Time: 10:45 12/16/24 10:44 Patient unable to answer at this time (ie. confused, unrespo /Reproduction History /Reproductive History - cosmetology professor: /Reproductive Hx- cosmetology professor Hx Now Gestational Age (in weeks): EDC: Hx Hx Para Hx Section SAB No 12/16/24 10:44 [facility] Medical History History of Wilks esophagus Wears glasses Depression Anxiety History of steroid therapy History of hiatal hernia Gastric reflux Vapes nicotine containing substance Hypertension Hx of ovarian cyst Home Medications ?Medication ?Instructions ?Recorded ?Last Taken ?Type cyanocobalamin (vitamin B-12) 1,000 mcg PO QDAY 08/03/24 12/20/24 History 1,000 mcg capsule fremanezumab-vfrm 225 mg/1.5 mL 225 mg subcut QMONTH 08/03/24 10/18/24 History subcutaneous syringe (Ajovy Syringe) lisinopril 5 mg tablet 5 mg PO QDAY 08/03/24 12/20/24 History spironolactone 50 mg tablet 50 mg PO BID 08/03/24 12/20/24 History sumatriptan succinate 50 mg tablet 50 mg PO ONCE PRN migraine headache 08/03/24 Unknown History zolpidem 10 mg tablet 10 mg PO QHS PRN sleep 08/03/24 Unknown History cholecalciferol (vitamin D3) 10 10 mcg PO QDAY 08/16/24 12/20/24 History mcg (400 unit) capsule dextroamphetamine-amphetamine 30 30 mg PO QDAY 08/16/24 Unknown History mg tablet (Adderall) duloxetine 30 mg capsule,delayed 90 mg PO QHS 08/16/24 12/20/24 History release (Cymbalta) alprazolam 0.5 mg tablet 0.5 mg PO DAILY 10/12/24 12/21/24 05:00 History pantoprazole 40 mg tablet,delayed 40 mg PO BID 12/16/24 12/21/24 05:00 History release Allergy/AdvReac Type Severity Reaction Status Date / Time No Known Allergies Allergy Verified 12/21/24 06:16 Surgical History History of esophagogastroduodenoscopy (EGD) Hx of colonoscopy Hx of hysterectomy Hx of laminectomy Hx of appendectomy Social History Smoking Status: Current every day smoker tobacco type: e-cigarettes Review of Systems (Anesthesia) ROS Narrative System reviewed and no additional complaints, except as documented.
--- NOTE | 2024-12-21 07:46 | OP.EGD_ITS ---
Patient Name: Timmy Aburto Procedure Date: 12/21/2024 7:30 AM Date of : 1980 Age: 44 Procedure: Upper GI endoscopy Indications: Follow-up of Wilks's esophagus Providers: David Bunn DO Referring MD: David Bunn DO Medicines: Monitored Anesthesia Care Patient Profile: This is a 44 year old female. Refer to note in patient chart for documentation of history and physical. Patient has symptoms. Patient has symptoms of chronic heartburn. Her most recent EGD for Wilks's biopsy. Complications: No immediate complications. Procedure: Pre-Anesthesia Assessment: - Prior to the procedure, a History and Physical was performed, and patient medications and allergies were reviewed. The patient is competent. The risks and benefits of the procedure and the sedation options and risks were discussed with the patient. All questions were answered and informed consent was obtained. Patient identification and proposed procedure were verified by the physician in the pre-procedure area. Mental Status Examination: alert and oriented. Airway Examination: normal oropharyngeal airway and neck mobility. Respiratory Examination: clear to auscultation. CV Examination: normal. Prophylactic Antibiotics: The patient does not require prophylactic antibiotics. Prior Anticoagulants: The patient has taken no anticoagulant or antiplatelet agents except for NSAID medication. ASA Grade Assessment: II - A patient with mild systemic disease. After reviewing the risks and benefits, the patient was deemed in satisfactory condition to undergo the procedure. The anesthesia plan was to use monitored anesthesia care (MAC). Immediately prior to administration of medications, the patient was re-assessed for adequacy to receive sedatives. The heart rate, respiratory rate, oxygen saturations, blood pressure, adequacy of pulmonary ventilation, and response to care were monitored throughout the procedure. The physical status of the patient was re-assessed after the procedure. After obtaining informed consent, the endoscope was passed under direct vision. Throughout the procedure, the patient's blood pressure, pulse, and oxygen saturations were monitored continuously. The Endoscope was introduced through the mouth, and advanced to the second part of duodenum. The upper GI endoscopy was accomplished without difficulty. The patient tolerated the procedure well. Scope In: 7:37:10 AM Scope Out: 7:41:02 AM Total Procedure Duration Time 0 hours 3 minutes 52 seconds Findings: There were esophageal mucosal changes secondary to established short-segment Wilks's disease present in the lower third of the esophagus. The maximum longitudinal extent of these mucosal changes was 3 cm in length. Mucosa was biopsied with a cold forceps for histology in a targeted manner at intervals of 1 cm in the lower third of the esophagus. One specimen bottle was sent to pathology. Verification of patient identification for the specimen was done. Estimated blood loss was minimal. A small hiatal hernia was present. No gross lesions were noted in the entire examined stomach. No gross lesions were noted in the second portion of the duodenum. Impression: - Esophageal mucosal changes secondary to established short-segment Wilks's disease. Biopsied. - Small hiatal hernia. - No gross lesions in the entire stomach. - No gross lesions in the second portion of the duodenum. Recommendation: - Discharge patient to home. - Resume previous diet. - Continue present medications. - Await pathology results. Procedure Code(s): --- Professional --- 16148, Esophagogastroduodenoscopy, flexible, transoral; with biopsy, single or multiple CPT copyright 2021 [employer]. All rights reserved. The codes documented in this report are preliminary and upon surgical coder review may be revised to meet current compliance requirements. David Bunn DO 12/21/2024 7:45:54 AM This report has been signed electronically. Number of Addenda: 0 Note Initiated On: 12/21/2024 7:30 AM
--- NOTE | 2024-12-21 07:46 | OP.CCLET_ITS ---
12/21/2024 No Primary Care Physician Re : Upper GI endoscopy procedure for Timmy Aburto Dear Care Physician This procedure was performed on Saturday, December 21, 2024. My impressions and recommendations are as follows: Impressions : - Esophageal mucosal changes secondary to established short-segment Wilks's disease. Biopsied. - Small hiatal hernia. - No gross lesions in the entire stomach. - No gross lesions in the second portion of the duodenum. Recommendations : - Discharge patient to home. - Resume previous diet. - Continue present medications. - Await pathology results. My findings are described in the full procedure note, which is enclosed. If I can be of further assistance, please feel free to contact me at . Sincerely, David Bunn, 12/21/2024 7:45:54 AM This report has been signed electronically.
--- NOTE | 2024-12-21 07:54 | PCM.POST.ANE ---
Anesthesia: Postop Eval I Current Vital Signs Temperature: 97.4 F Pulse Rate: 88 Blood Pressure: 107/79 Respiratory Rate: 16 Pulse Ox: 96 Oxygen Delivery Method: Room Air Assessment Airway patent: Yes Spontaneous unlabored respirations: Yes Mental status: Awake and Calm nausea: Yes Vomiting: No Anesthesia Complication: Yes Anesthesia Complication Comment:: post-op nausea, tx w/IV promethazine by anes in PACU Fluid Hydration Crystalloid volume administer (ml): 50 Total IV fluid infused: 50 Progress Note Anesthesia document: Postop Eval 1 completed: Yes
[2024-12-21 11:50] LABS: Thyroid Stim Hormone (TSH) 0.697 uIU/mL (0.300-4.200)
[2024-12-23 17:07] LABS: Gastrin, Serum 556 pg/mL (0-115)
== END 2024-12-21 08:14 | disposition home or self-care (01) ==
LOC: EN 05:48 → AC 05:50
PROVIDERS: Nurse Practitioner Acute Care; Referring Provider Internal Medicine Gastroenterology; Visit Provider Internal Medicine Gastroenterology
PROC: 0DJ08ZZ Inspection of Upper Intestinal Tract, Via Natural or Artificial Opening Endoscopic (ICD-10-PCS; CPT 43235; principal; 2024-12-21 06:55)
DX: K22.70 Barrett's esophagus without dysplasia (principal); K44.9 Diaphragmatic hernia without obstruction or gangrene; I10 Essential (primary) hypertension; Z79.899 Other long term (current) drug therapy; F17.290 Nicotine dependence, other tobacco product, uncomplicated; K21.9 Gastro-esophageal reflux disease without esophagitis
CPT/HCPCS: 43239; 36415; 82941; 84443; 88305; A4216; J2405